=== PATIENT | male | born 1960 | race African-American/Black ===

== ENCOUNTER 2023-08-20 08:04 | Inpatient (IN) | payer OTHER ==
[2023-08-20 09:26] LABS: BASO % 0.3 % (0-2.0); EOS % 0.1 % (0-4.5); HEMATOCRIT 38.1 % (35.4-49); LYMPH % 4.7 % (8-40); MCH 29.9 pg (25.7-33.7); MEAN PLT VOLUME 7.7 fl (7.5-11.1); MONO % 5.7 % (3.8-10.2); NEUT % 89.2 % (42.8-82.8); PLATELET COUNT 204 10^3/uL (134-434); RBC 4.33 M/mm3 (4.00-5.60); RDW 12.9 % (11.9-15.9); WHITE BLOOD COUNT 14.3 K/mm3 (4.0-10.0)
[2023-08-20 09:32] LABS: INR 1.27 (0.83-1.09); PROTHROMBIN TIME (PATIENT) 14.7 SEC (9.7-13.0)
[2023-08-20 09:35] LABS: ACTIVATED PTT 29.4 SECONDS (25.2-36.5)
[2023-08-20 09:57] LABS: POTASSIUM 3.9 mmol/L (3.5-5.1)
[2023-08-20 09:59] LABS: CALCIUM 8.7 mg/dL (8.5-10.1)
[2023-08-20 10:00] LABS: ALBUMIN 3.4 g/dl (3.4-5.0); BLOOD UREA NITROGEN 15.7 mg/dL (7-18)
[2023-08-20 10:03] LABS: CREATININE 1.6 mg/dL (0.55-1.3)
[2023-08-20 10:05] LABS: BILIRUBIN,TOTAL 1.4 mg/dL (0.2-1); TOT PROT 6.7 g/dl (6.4-8.2)
[2023-08-20] MEDS: SODIUM CHLORIDE 0.45% 1,000 ML IV SCH (12:44)
[2023-08-20 13:03] LABS: URINE COLOR YELLOW
[2023-08-20 13:04] LABS: URINE APPEARANCE CLEAR; URINE BILIRUBIN NEGATIVE (NEGATIVE); URINE GLUCOSE (UA) NEGATIVE (NEGATIVE); URINE KETONE NEGATIVE (NEGATIVE); URINE NITRITE NEGATIVE (NEGATIVE); URINE PROTEIN NEGATIVE (NEGATIVE)
[2023-08-20 13:05] LABS: EPI CELLS 2 /uL (0-25.1); HYALINE CASTS 0 /uL (0-3.1); URINE LEUK ESTERASE NEGATIVE (NEGATIVE); URINE RBC 38 /uL (0-23.9); URINE WBC 77 /uL (0-25.8)
[2023-08-20 13:06] LABS: URINE BACTERIA 843 /uL (0-1359)
[2023-08-20 14:58] LABS: N-TERMINAL BNP 148.2 pg/ml (5-125)
[2023-08-20 15:44] VITALS: BMI 24.5
[2023-08-20] MEDS: ACETAMINOPHEN 325 MG TABLET (FP) PO PRN (17:17)
[2023-08-20] MEDS: amLODIPine BESYLATE 10 MG TABLET (FP) PO ONE (17:20)
[2023-08-21] MEDS: CEFTRIAXONE 1 GM in DEXTROSE 5%-WATER - 50 ML IVPB ONE (00:05)
[2023-08-21 07:18] LABS: HEMATOCRIT 37.9 % (35.4-49); HEMOGLOBIN 12.3 GM/dL (11.7-16.9); MCH 28.8 pg (25.7-33.7); MCHC 32.5 g/dl (32.0-35.9); MEAN CELL VOLUME 88.6 fl (80-96); MEAN PLT VOLUME 8.6 fl (7.5-11.1); PLATELET COUNT 159 10^3/uL (134-434); RBC 4.28 M/mm3 (4.00-5.60); RDW 12.7 % (11.9-15.9); WHITE BLOOD COUNT 13.5 K/mm3 (4.0-10.0)
[2023-08-21 08:12] LABS: POTASSIUM 3.7 mmol/L (3.5-5.1)
[2023-08-21 08:15] LABS: ALBUMIN 2.9 g/dl (3.4-5.0); BLOOD UREA NITROGEN 17.7 mg/dL (7-18)
[2023-08-21 08:18] LABS: CREATININE 1.5 mg/dL (0.55-1.3)
[2023-08-21 08:20] LABS: BILIRUBIN,TOTAL 1.1 mg/dL (0.2-1); TOT PROT 6.2 g/dl (6.4-8.2)
[2023-08-21] MEDS ORDERED: ACETAMINOPHEN 325 MG TABLET (FP) PO PRN (08:42)
[2023-08-21] MEDS: CEFTRIAXONE 1 GM in DEXTROSE 5%-WATER - 50 ML IVPB SCH (09:01)
[2023-08-21] MEDS: PIPERACILLIN/TAZOB 4.5 GM 4.5 GM in DEXTROSE 5%-WATER 100 ML IVPB SCH ×3 (09:25→18:21)
[2023-08-21] MEDS: amLODIPine BESYLATE 10 MG TABLET (FP) PO SCH (09:25)
[2023-08-21 10:24] LABS: ANISOCYTOSIS 0; HELMET CELLS 0; HOWELL-JOLLY BODIES 0; MACROCYTOSIS 0; OVALOCYTE 0; ROULEAU 0; SICKELED CELLS 0; TARGET CELLS 0; TEAR DROP CELLS 0; TOXIC GRANULATION 0
[2023-08-21] MEDS: LACTATED RINGERS SOLUTION 1,000 ML/1,000 ML INFUS.BAG IV SCH (10:59)
[2023-08-21] MEDS: ACETAMINOPHEN 1000 MG/100 ML BAG IVPB PRN (14:57)
[2023-08-22] MEDS: HEPARIN NA (PORCINE) 5,000 UNITS/ML 1ML VIAL SQ SCH (21:42)
[2023-08-23 07:19] LABS: BASO % 0.8 % (0-2.0); EOS % 2.4 % (0-4.5); HEMOGLOBIN 12.5 GM/dL (11.7-16.9); LYMPH % 23.7 % (8-40); MCH 29.2 pg (25.7-33.7); MCHC 32.9 g/dl (32.0-35.9); MEAN CELL VOLUME 88.9 fl (80-96); MEAN PLT VOLUME 7.9 fl (7.5-11.1); MONO % 15.9 % (3.8-10.2); NEUT % 57.2 % (42.8-82.8); PLATELET COUNT 218 10^3/uL (134-434); RBC 4.28 M/mm3 (4.00-5.60); RDW 12.7 % (11.9-15.9)
[2023-08-23 07:38] LABS: POTASSIUM 4.2 mmol/L (3.5-5.1)
[2023-08-23 07:44] LABS: ALBUMIN 2.8 g/dl (3.4-5.0); BLOOD UREA NITROGEN 18.1 mg/dL (7-18); CALCIUM 8.5 mg/dL (8.5-10.1); MAGNESIUM 2.1 mg/dL (1.8-2.4)
[2023-08-23 07:47] LABS: CREATININE 1.4 mg/dL (0.55-1.3)
[2023-08-23 07:49] LABS: BILIRUBIN,TOTAL 0.7 mg/dL (0.2-1); TOT PROT 6.3 g/dl (6.4-8.2)
[2023-08-23] MEDS: CEFTRIAXONE 2 GM in DEXTROSE 5%-WATER 100 ML IVPB SCH (17:26)
[2023-08-24 07:12] LABS: BASO % 1.3 % (0-2.0); EOS % 3.2 % (0-4.5); HEMATOCRIT 38.3 % (35.4-49); HEMOGLOBIN 12.5 GM/dL (11.7-16.9); LYMPH % 27.9 % (8-40); MCHC 32.5 g/dl (32.0-35.9); MEAN CELL VOLUME 89.3 fl (80-96); MEAN PLT VOLUME 7.4 fl (7.5-11.1); MONO % 17.1 % (3.8-10.2); NEUT % 50.5 % (42.8-82.8); PLATELET COUNT 252 10^3/uL (134-434); RBC 4.29 M/mm3 (4.00-5.60); RDW 13.2 % (11.9-15.9); WHITE BLOOD COUNT 5.3 K/mm3 (4.0-10.0)
[2023-08-24 07:20] LABS: POTASSIUM 4.2 mmol/L (3.5-5.1)
[2023-08-24 07:27] LABS: CALCIUM 8.8 mg/dL (8.5-10.1)
[2023-08-24 07:28] LABS: ALBUMIN 2.9 g/dl (3.4-5.0); BLOOD UREA NITROGEN 15.4 mg/dL (7-18); MAGNESIUM 2.1 mg/dL (1.8-2.4)
[2023-08-24 07:31] LABS: CREATININE 1.2 mg/dL (0.55-1.3); PHOSPHOROUS 3.7 mg/dL (2.5-4.9)
[2023-08-24 07:33] LABS: BILIRUBIN,TOTAL 0.4 mg/dL (0.2-1); TOT PROT 6.5 g/dl (6.4-8.2)
[2023-08-24 21:15] VITALS: PULSE 74; TEMP 97.9
[2023-08-25 06:30] VITALS: BP 132/95; RESP 20
[2023-08-25 08:18] LABS: POTASSIUM 4.4 mmol/L (3.5-5.1)
[2023-08-25 08:23] LABS: BASO % 1.2 % (0-2.0); EOS % 2.1 % (0-4.5); HEMATOCRIT 38.9 % (35.4-49); HEMOGLOBIN 13.1 GM/dL (11.7-16.9); LYMPH % 30.9 % (8-40); MCH 29.5 pg (25.7-33.7); MCHC 33.6 g/dl (32.0-35.9); MEAN CELL VOLUME 87.8 fl (80-96); MEAN PLT VOLUME 7.8 fl (7.5-11.1); MONO % 11.9 % (3.8-10.2); NEUT % 53.9 % (42.8-82.8); PLATELET COUNT 269 10^3/uL (134-434); RBC 4.43 M/mm3 (4.00-5.60); RDW 13.3 % (11.9-15.9)
[2023-08-25 08:24] LABS: BLOOD UREA NITROGEN 17.3 mg/dL (7-18); CALCIUM 9.4 mg/dL (8.5-10.1); MAGNESIUM 2.2 mg/dL (1.8-2.4)
[2023-08-25 08:25] LABS: ALBUMIN 2.9 g/dl (3.4-5.0)
[2023-08-25 08:27] LABS: BILIRUBIN,TOTAL 0.7 mg/dL (0.2-1); PHOSPHOROUS 3.8 mg/dL (2.5-4.9); TOT PROT 6.8 g/dl (6.4-8.2)
[2023-08-25 08:28] LABS: CREATININE 1.1 mg/dL (0.55-1.3)
[2023-08-26] MEDS ORDERED: TAMSULOSIN HCL 0.4 MG CAP PO SCH (08:30)
== END 2023-08-25 13:05 | disposition home or self-care (01) | DRG 872 ==
LOC: JER 08:04 → JERBED 11:26 → OBSVTOIN 11:26 → J4W 15:03
PROVIDERS: ADMIT Internal Medicine; ATTEND Internal Medicine
DX: A41.50 Gram-negative sepsis, unspecified (principal); N39.0 Urinary tract infection, site not specified; I10 Essential (primary) hypertension; N40.1 Benign prostatic hyperplasia with lower urinary tract symptoms; B96.1 Klebsiella pneumoniae [K. pneumoniae] as the cause of diseases classified elsewhere; R31.29 Other microscopic hematuria
CPT/HCPCS: 0241U-QW; 36415; 71045-TC-FY; 71275-TC; 76775-TC; 76856-TC; 80053; 81003; 82436; 83735; 83880; 84100; 84133; 84300; 84484; 85025; 85610; 85730; 87040; 87086; 87186; 87254; 93005; 93010; 94010; 94761; 99285-25; J0131; J1644